=== PATIENT | female | born 2005 | race Hispanic/Latino ===

== ENCOUNTER 2025-06-03 08:33 | Emergency (ER) | payer BC ==
[~2025-06-03] VITALS: Ht 165.1 cm; Wt 74.8 kg
[2025-06-03 08:49] VITALS: BP 119/71; PULSE 81; RESP 20; TEMP 98.1
[2025-06-03 09:15] LABS: RAPID GROUP A STREP negative (NEGATIVE)
[2025-06-03 09:35] LABS: COVID19 (SARS ANTIGEN RAPID) POSITIVE FOR SARS AG (NEGATIVE); INFLUENZA TYPE A Negative For Type A (NEGATIVE); INFLUENZA TYPE B Negative For Type B (NEGATIVE)
--- NOTE | 2025-06-03 09:37 | NUR ---
PT TESTED POSITIVE FOR COVID. EDUCATION ON CONDITION GIVEN. PT AGREED AND UNDERSTOOD. INSTRUCTED TO WEAR MASK TO PREVENT FURTHER CONTAMINATION.
[2025-06-03] MEDS ORDERED: PSEU120T62 PO (09:43)
--- NOTE | 2025-06-03 09:43 | ERN ---
General Chief Complaint: Congestion Stated Complaint: FLU SYMPTOMS Time Seen by MD: 08:39 History of Present Illness Initial Comments Otherwise healthy 20-year-old female who presents for sore throat cough congestion and fever for 72 hours. No sick contacts. P.o. tolerant. No nausea or vomiting diarrhea or dysuria. Allergies: Coded Allergies: No Known Drug Allergies (Unverified Allergy, Unknown, 06/03/25) Past Medical History Past Medical History: No Pertinent History Past Surgical History: None ROS Dictation CONSTITUTIONAL: Fevers HEAD/FACE: No signs of trauma. EENT: Rhinorrhea cough congestion RESPIRATORY: No cough, no orthopnea, no SOB, no stridor, no wheezing. CARDIOVASCULAR: No chest pain, no edema, no palpitations, no syncope. GASTROINTESTINAL/ABDOMINAL: No abdominal pain, no constipation, no diarrhea, no nausea, no vomiting. GENITOURINARY: No abnormal discharge, no dysuria, no frequent urination, no hematuria. No complaints of pain in the genitals. MUSCULOSKELETAL: No back pain, no gout, no joint pain, no joint swelling, no muscle pain, no muscle stiffness, no neck pain. INTEGUMENTARY: No change in color, no change in hair/nails, no dryness, no l esion, no lumps, no rash. NEUROLOGICAL/PSYCH: No anxiety, not depressed, no emotional problem, no headache, no numbness, no pre-existing deficit, no history of seizures, no tremors, no weakness. HEMATOLOGIC/LYMPHATIC: Not anemic, no history of blood clots, no apparent bleeding, no bruising, glands not swollen. All Systems Negative, Except as Noted. Physical Exam Physical Exam Dictation VITAL SIGNS: Reviewed. GENERAL APPEARANCE: Alert, oriented x3, no acute distress. HEAD AND FACE: Non-traumatic. EYES: PERRL, pink conjunctivas, eyelid no trauma, anterior chamber clear. EARS: Pinnas intact and no signs of trauma or erythema. Ear canals clear and no discharge. TMs no erythema. NOSE: No discharge, no bleeding. OROPHARYNX: Mouth normal, teeth no caries, tongue pink. Pharynx clear, no erythema. Tonsils no exudates, no abscesses noted. Mucous membrane moist. NECK: Supple, non-tender, no thyromegaly, no masses, no JVD, no bruits. BREAST: Deferred. CHEST: No tenderness, no crepitus, no paradoxical movement, no retractions. LUNGS: Clear, well-ventilated, symmetric, no rales, no wheezing, no rhonchi, no stridor, good breath sounds bilaterally. HEART: Regular rate, regular rhythm, no murmur, no gallops. VASCULAR: No peripheral edema. ABDOMEN: Soft, positive bowel sounds, nondistended, no guarding, nontender, no rebound, no masses no hepatomegaly, no splenomegaly, no Gurrola's sign, no hernias. RECTAL: Deferred. GENITAL: Deferred. NEUROLOGICAL: Normal speech, gross motor function intact, gross sensory function intact. MUSCULOSKELETAL: Neck nontender, full range of motion, back nontender, full range of motion. EXTREMITIES: Nontender, full range of motion. SKIN: Color pink, dry, no turgor, no rash, no lacerations, no abrasions, no contusions. LYMPHATICS: Deferred. Results Laboratory and Microbiology Lab and Micro Result Laboratory Tests Test 06/03/25 08:45 Influenza Type A Antigen Negative For Type A Influenza Type B Antigen Negative For Type B SARS-CoV-2 Antigen (Rapid) POSITIVE FOR SARS AG Group A Streptococcus Rapid negative (NEGATIVE) MDM CC: Viral URI type symptoms Historian: Patient No comorbidities No limitations Differential diagnosis: Viral URI versus other Vital signs are stable Clinical exam is unremarkable. Positive for COVID, labs independently interpreted by me. COVID consistent with the symptoms. Afebrile here. We will recommend OTC medications, we will discharge with Sudafed recommend PCP follow up as needed. Patient agrees with the plan. ED Course Orders Procedure Category Date Status Time Covid19 (Sars Antigen LAB 06/03/25 Complete Rapid) 08:41 Influenza Type A & B, LAB 06/03/25 Complete Rapid 08:41 Rapid (Group A Strep) LAB 06/03/25 Complete 08:41 Vital Signs Date Time Temp Pulse Resp B/P (MAP) Pulse Ox O2 Delivery O2 Flow Rate FiO2 06/03/25 08:49 98.1 81 20 119/71 Room Air* 0 21 06/03/25 08:35 97.9 112 18 121/62 95 Room Air DX & DISP Disposition: Discharge Departure Impression: Primary Impression: COVID Condition: Stable Scripts Pseudoephedrine HCl (Sudafed 12 Hour) 120 Mg Tablet.er 1 TAB PO BID for congestion for 10 Days, #20 TAB 0 Refills Prov: ZABRINA HAYNES DO 06/03/25 Additional Instructions: You tested positive for COVID-19. This is a viral upper respiratory infection. It does not require antibiotics. Alternate Tylenol (650 mg) and ibuprofen (600 mg) every 4 hours as needed for fever. These medications are [id number]. You can also try cough and cold medications as needed. I have prescribed pseudoephedrine, which is a decongestant. Use as needed. Please follow up with the primary doctor in 72 hours if you continue with symptoms. Return to the emergency department as needed. Referrals: SELF,REFERRAL (PCP) ZABRINA HAYNES DO Jun 03, 2025 09:43
== END 2025-06-03 09:48 | disposition home or self-care (01) ==
LOC: EDH 08:33
DX: U07.1 COVID-19 (principal); R05.9 Cough, unspecified; R50.9 Fever, unspecified
CPT/HCPCS: 87426; 87804; 87880; 99283